=== PATIENT | male | born 1950 | race Caucasian/White ===

== ENCOUNTER 2020-06-15 04:08 | Observation (INO) ==
[2020-06-15] MEDS ORDERED: Naloxone 0.4 MG/ML INJ IVP PRN (05:49)
[2020-06-15] MEDS ORDERED: Acetaminophen 325 MG TABLET PO PRN (09:02)
[2020-06-15] MEDS: lisinopriL 20 MG TABLET PO SCH (12:30)
[2020-06-15] MEDS: Ibuprofen 600 MG TABLET PO PRN ×2 (12:31→19:50)
[2020-06-15] MEDS: Tiotropium 18 MCG inhalation IH SCH (14:27)
[2020-06-16] MEDS: Ibuprofen 600 MG TABLET PO PRN (06:37)
[2020-06-16 06:52] VITALS: BP 125/72
[2020-06-16 09:14] LABS: Basophils # 0.1 K/mcL (0.0-0.2); Basophils % 0.6 %; Eosinophils # 0.5 K/mcL (0.0-0.6); Eosinophils % 4.4 %; Hematocrit 47.4 % (37.5-50.1); Hemoglobin 15.8 g/dL (12.9-16.9); Immature Granulocytes % 0.8 % (0-4); Lymphocytes # 1.8 K/mcL (0.6-4.6); Lymphocytes % 15.1 %; Mean Corpuscular HGB Conc 33.3 g/dL (31.6-35.5); Mean Corpuscular Hemoglobin 30.9 pg (28.0-33.3); Mean Corpuscular Volume 92.6 fL (83.0-100.0); Mean Platelet Volume 12.2 fL (9.4-12.4); Monocytes # 0.9 K/mcL (0.0-1.3); Monocytes % 7.7 %; Neutrophils # 8.6 K/mcL (1.6-8.9); Platelet Count 183 K/mcL (140-400); Red Blood Count 5.12 M/mcL (4.19-5.50); Red Cell Distribution Width 14.4 % (11.5-14.5); Segmented Neutrophils % 71.4 %
[2020-06-16] MEDS: lisinopriL 20 MG TABLET PO SCH (09:17)
[2020-06-16 09:23] LABS: Alanine Aminotransferase 22 Units/L (7-52); Albumin 3.8 g/dL (3.5-5.7); Albumin/Globulin Ratio 1.2 (1.1-2.2); Alkaline Phosphatase 70 Units/L (34-104); Aspartate Amino Transferase 21 Units/L (13-39); BUN/Creatinine Ratio 18 (6-26); Bilirubin,Total 0.8 mg/dL (0.3-1.0); Blood Urea Nitrogen 17 mg/dL (8-23); Carbon Dioxide 25 mEq/L (23-29); Chloride 102 mEq/L (98-107); Globulin 3.3 g/dL (2.4-3.5); Glucose 141 mg/dL (70-105); Osmolality,Calculated 286 (280-300); Potassium 4.4 mEq/L (3.5-5.1); Sodium 136 mEq/L (136-145); Total Protein 7.1 g/dL (6.4-8.9); eGFR For African Americans > 60 (> 60); eGFR For Non-African Americans > 60 (> 60)
[2020-06-16] MEDS: Tiotropium 18 MCG inhalation IH SCH (10:47)
== END 2020-06-16 17:40 | disposition short-term general hospital (02) ==
LOC: INPPIK
PROVIDERS: ADMIT Student in an Organized Health Care Education/Training Program; ATTEND Student in an Organized Health Care Education/Training Program